=== PATIENT | male | born 1980 | race Caucasian/White ===

== ENCOUNTER 2019-09-03 22:49 | Emergency (ER) | payer SELFPAY ==
[~2019-09-03] VITALS: Ht 167.6 cm; Wt 74.5 kg
[2019-09-03 22:56] VITALS: TEMP 98.8
[2019-09-04 00:28] LABS: ALANINE AMINOTRANSFERASE 79 U/L (21-72); ALBUMIN 4.5 gm/dL (3.5-5.0); ALKALINE PHOSPHATASE 91 U/L (50-136); ANION GAP 8 mmol/L (7-16); AST,SGOT 65 U/L (15-37); BILIRUBIN,TOTAL 0.6 mg/dL (0.0-1.0); BLOOD UREA NITROGEN 11 mg/dL (9-20); CALCIUM 9.2 mg/dL (8.4-10.2); CARBON DIOXIDE 26 mmol/L (22-30); CHLORIDE 105 mmol/L (98-107); CREATININE, serum 0.87 (0.66-1.25); GLUCOSE 106 mg/dL (74-106); LIPASE 162 U/L (23-300); MAGNESIUM 2.1 mg/dL (1.6-2.3); POTASSIUM 3.3 mmol/L (3.4-5.0); SODIUM 140 mmol/L (137-145); TOTAL PROTEIN 7.5 gm/dL (6.4-8.2); TROPONIN-I < 0.012 ng/mL (0.000-0.035)
[2019-09-04 00:29] LABS: BASO % 0.6 % (0.0-2.0); EOS # 0.1 (0.0-0.7); EOS % 1.2 % (0-4.0); GRAN # 2.9 (1.4-6.5); GRAN % 56.7 % (42.2-75.2); HEMATOCRIT 39.4 % (42.0-52.0); LYMPH # 1.6 (1.2-3.4); LYMPH % 30.9 % (20.0-51.0); MEAN CELL VOLUME 88 fl (80.0-100.0); MEAN CORPUSCULAR HEMOGLOBIN 31 pg (27.0-31.0); MEAN CORPUSCULAR HGB CONC 36 g/dl (33.0-37.0); MEAN PLATELET VOLUME 11.9 fl (7.4-10.4); MONO # 0.5 (0.1-0.6); MONO % 10.4 % (1.7-9.3); PLATELET COUNT 218 K/mm3 (130-400); REDCELL DISTRIBUTION WIDTH-CV 12.2 % (11.5-14.5)
[2019-09-04] MEDS ORDERED: PHENERGAN 25 TA25 MG PO (01:14)
[2019-09-04] MEDS ORDERED: ZOFRAN ODT4 MG PO (01:14)
[2019-09-04 01:49] LABS: COLLECTION METHOD CLEAN CATCH
[2019-09-04 02:32] LABS: AMORPHOUS CRYSTAL Present /uL; MUCOUS Present /lpf; PH 6 (5-8); SQUAMOUS EPITHELIAL None Seen /hpf; URINE APPEARANCE Cloudy; URINE BACTERIA Rare /hpf; URINE BILIRUBIN Negative (NEGATIVE); URINE BLOOD Negative (NEGATIVE); URINE COLOR Yellow; URINE GLUCOSE Negative (NEGATIVE); URINE KETONE 1+ (NEGATIVE); URINE LEUKOCYTE ESTERASE Negative (NEGATIVE); URINE NITRATE Negative (NEGATIVE); URINE PROTEIN(semi-quant) Negative (NEGATIVE); URINE UROBILINOGEN Negative (NEGATIVE)
[2019-09-04 02:42] VITALS: BP 118/77; PULSE 81
== END 2019-09-04 02:45 | disposition home or self-care (01) ==
LOC: COL.ER 22:49
PROVIDERS: Emergency Medicine
DX: R07.9 Chest pain, unspecified (principal); R11.10 Vomiting, unspecified; I10 Essential (primary) hypertension; F17.210 Nicotine dependence, cigarettes, uncomplicated
CPT/HCPCS: J2405; J7030

== ENCOUNTER 2021-12-03 18:39 | Emergency (ER) | payer SELFPAY ==
[~2021-12-03] VITALS: Ht 167.6 cm; Wt 76.4 kg
[~2021-12-03 18:39] MED LIST: PHENERGAN 25 TA25 MG PO; ZOFRAN ODT4 MG PO
[2021-12-03 18:46] VITALS: TEMP 98.1
[2021-12-03 19:36] VITALS: BP 134/98; PULSE 80
== END 2021-12-03 19:36 | disposition home or self-care (01) ==
LOC: COL.ER 18:39
DX: S09.90XA Unspecified injury of head, initial encounter (principal); Z28.310 Unvaccinated for COVID-19; V49.40XA Driver injured in collision with unspecified motor vehicles in traffic accident, initial encounter